=== PATIENT | male | born 1985 | race Caucasian/White ===

== ENCOUNTER 2023-01-18 05:28 | Inpatient (IN) | payer SELFPAY ==
[~2023-01-18] VITALS: Ht 182.9 cm; Wt 112.0 kg
--- NOTE | 2023-01-18 05:44 | ED Abdominal Pain ---
General Chief Complaint: Abdominal/GI Problems Stated Complaint: STOMACH PAIN History of Present Illness Date Seen by Provider: Jan 18, 2023 Time Seen by Provider: 05:42 Initial Comments 37-year-old male with PMH of gastric ulcer/GERD, is here with complaints of upper abdominal pain which began around 3:30 AM today morning. Patient had 2 teeth pulled yesterday. Abdominal pain is 4/10 intensity, and is coming and going. Denies diarrhea, dysuria, hematuria, nausea and vomiting, fever and chills, chest pain or palpitations. Allergies and Home Medications Allergies Coded Allergies: No Known Drug Allergies (Unverified , 01/18/23) Patient Home Medication List Home Medication List Reviewed: Yes Review of Systems Review of Systems Constitutional: no symptoms reported EENTM: No Symptoms Reported Respiratory: No Symptoms Reported Cardiovascular: No Symptoms Reported Gastrointestinal: Abdominal Pain Genitourinary: No Symptoms Reported Musculoskeletal: no symptoms reported Skin: no symptoms reported Psychiatric/Neurological: No Symptoms Reported Endocrine: No Symptoms Reported Hematologic/Lymphatic: No Symptoms Reported Physical Exam Vital Signs Vital Signs - First Documented 01/18/23 05:32 Temp 36.0 Pulse 52 Resp 14 B/P (MAP) 145/95 (112) Pulse Ox 99 O2 Delivery Room Air Capillary Refill : Height/Weight/BMI Height: '" Weight: lbs. oz. kg; BMI Method: General Appearance: WD/WN, mild distress HEENT: PERRL/EOMI Neck: full range of motion Respiratory: chest non-tender, lungs clear, normal breath sounds Cardiovascular: regular rate, rhythm, no edema Gastrointestinal: normal bowel sounds, soft, no organomegaly, tenderness (Tenderness present mainly in the epigastric region) Extremities: normal range of motion Back: normal inspection, no CVA tenderness, no vertebral tenderness Neurologic/Psychiatric: alert, normal mood/affect, oriented x 3 Skin: normal color Progress/Results/Core Measures Results/Orders Lab Results Laboratory Tests Test 01/18/23 05:40 Range/Units White Blood Count 12.6 H 4.3-11.0 10^3/uL Red Blood Count 5.24 4.30-5.52 10^6/uL Hemoglobin 15.7 13.3-17.7 g/dL Hematocrit 44 40-54 % Mean Corpuscular Volume 83 80-99 fL Mean Corpuscular Hemoglobin 30 25-34 pg Mean Corpuscular Hemoglobin Concent 36 32-36 g/dL Red Cell Distribution Width 11.9 10.0-14.5 % Platelet Count 327 130-400 10^3/uL Mean Platelet Volume 9.3 9.0-12.2 fL Immature Granulocyte % (Auto) 0 % Neutrophils (%) (Auto) 74 42-75 % Lymphocytes (%) (Auto) 19 12-44 % Monocytes (%) (Auto) 5 0-12 % Eosinophils (%) (Auto) 2 0-10 % Basophils (%) (Auto) 0 0-10 % Neutrophils # (Auto) 9.3 H 1.8-7.8 10^3/uL Lymphocytes # (Auto) 2.3 1.0-4.0 10^3/uL Monocytes # (Auto) 0.7 0.0-1.0 10^3/uL Eosinophils # (Auto) 0.3 0.0-0.3 10^3/uL Basophils # (Auto) 0.0 0.0-0.1 10^3/uL Immature Granulocyte # (Auto) 0.0 0.0-0.1 10^3/uL Sodium Level 139 135-145 MMOL/L Potassium Level 3.5 L 3.6-5.0 MMOL/L Chloride Level 104 98-107 MMOL/L Carbon Dioxide Level 19 L 21-32 MMOL/L Anion Gap 16 H 5-14 MMOL/L Blood Urea Nitrogen 17 7-18 MG/DL Creatinine 0.90 0.60-1.30 MG/DL Estimat Glomerular Filtration Rate 114 BUN/Creatinine Ratio 19 Glucose Level 132 H 70-105 MG/DL Calcium Level 9.9 8.5-10.1 MG/DL Corrected Calcium 8.5-10.1 MG/DL Total Bilirubin 0.5 0.1-1.0 MG/DL Aspartate Amino Transf (AST/SGOT) 16 5-34 U/L Alanine Aminotransferase (ALT/SGPT) 23 0-55 U/L Alkaline Phosphatase 73 40-136 U/L Total Protein 7.4 6.4-8.2 GM/DL Albumin 4.9 H 3.2-4.5 GM/DL Lipase 806 H 8-78 U/L Serum Alcohol < 10 <10 MG/DL My Orders Orders - AGUSTÍN JAMES MD Alcohol (01/18/23 05:44) Cbc With Automated Diff (01/18/23 05:44) Comprehensive Metabolic Panel (01/18/23 05:44) Drug Screen Stat (Urine) (01/18/23 05:44) Lipase (01/18/23 05:44) Ua Culture If Indicated (01/18/23 05:44) Ct Abdomen/Pelvis W (01/18/23 05:45) Pantoprazole Injection (Protonix Injecti (01/18/23 06:00) Famotidine Injection (Pepcid Injection) (01/18/23 06:00) Ed Iv/Invasive Line Start (01/18/23 05:51) Ns Iv 1000 Ml (Sodium Chloride 0.9%) (01/18/23 05:51) Iohexol Injection (Omnipaque 350 Mg/Ml 1 (01/18/23 06:00) Received Contrast (Hold Metformin- Contr (01/18/23 06:00) Sodium Chloride Flush (Catheter Flush Sy (01/18/23 06:00) Ns (Ivpb) (Sodium Chloride 0.9% Ivpb Bag (01/18/23 06:00) Ondansetron Injection (Zofran Injectio (01/18/23 06:00) Fentanyl Inj (Sublimaze Injection) (01/18/23 06:00) Medications Given in ED Current Medications Medications Dose Ordered Sig/Soledad Route Start Time Stop Time Status Last Admin Dose Admin Famotidine 20 mg ONCE ONCE IVP 01/18/23 06:00 01/18/23 06:01 DC 01/18/23 05:58 20 MG Fentanyl Citrate 50 mcg ONCE ONCE IVP 01/18/23 06:00 01/18/23 06:01 DC 01/18/23 06:07 50 MCG Iohexol 100 ml ONCE ONCE IV 01/18/23 06:00 01/18/23 06:01 DC 01/18/23 06:26 80 ML Ondansetron HCl 4 mg ONCE ONCE IVP 01/18/23 06:00 01/18/23 06:01 DC 01/18/23 06:05 4 MG Pantoprazole 40 mg ONCE ONCE IV 01/18/23 06:00 01/18/23 06:01 DC 01/18/23 05:59 40 MG Sodium Chloride 10 ml NEEDED PRN IV 01/18/23 06:00 01/18/23 06:27 10 ML Sodium Chloride 100 ml ONCE ONCE IV 01/18/23 06:00 01/18/23 06:01 DC 01/18/23 06:26 100 ML Vital Signs/I&O 01/18/23 05:32 Temp 36.0 Pulse 52 Resp 14 B/P (MAP) 145/95 (112) Pulse Ox 99 O2 Delivery Room Air Progress Progress Note : Progress Note 1. ABDOMINAL PAIN: PANCREATITIS - CT ABD: negative for acute processes - CBC:WBC is 12.6 with a left shift - CMP: unremarkable - Lipase: 806 - UA/ UDS: pt did not give urine - Protonix 40mg iv/ Pepcid 20mg iv/ NS IVF - Zofran 4mg iv/ Fentanyl iv - Admission for pancreatitis for pain control and IVF Diagnostic Imaging Diagonstic Imaging: CT Plain Films/CT/US/NM/MRI: abdomen Comments NAME: TAMMI HIGGINS MED REC#: [id number] PT STATUS: REG ER : 1985 PHYSICIAN: AGUSTÍN JAMES MD ADMIT DATE: 01/18/23/ER FS Draft Date of Exam:01/18/23 CT ABDOMEN/PELVIS W PROCEDURE: CT abdomen and pelvis with contrast. TECHNIQUE: Multiple contiguous axial images were obtained through the abdomen and pelvis after administration of intravenous contrast. Auto Exposure Controls were utilized during the CT exam to meet ALARA standards for radiation dose reduction. All CT scans use one or more of the following dose optimizing techniques: automated exposure control, MA and/or KvP adjustment based on patient size and exam type or iterative reconstruction. INDICATION: 38-year-old male, abdominal pain with nausea and vomiting. CORRELATION STUDY: None. FINDINGS: LOWER THORAX: Clear. LIVER: Enlarged at 20.8 cm with mild steatosis. Very mild additional fatty infiltration along the falciform ligament. GALLBLADDER: Present and unremarkable. No bile duct dilatation. SPLEEN: Unremarkable. PANCREAS: Unremarkable. ADRENAL GLANDS: Unremarkable. KIDNEYS: Probable very small cyst inferior pole left kidney with perhaps a very small angiomyolipoma inferior pole right kidney. No calcification or obstruction. ABDOMINAL AORTA: Unremarkable, nonaneurysmal. GASTROINTESTINAL TRACT: Colon is largely decompressed. A few scattered colonic diverticuli without evidence for diverticulitis. Normal appendix. A few fluid-filled loops of small bowel without obstruction. Stomach is decompressed. No abdominal ascites and/or free air. URINARY BLADDER: Unremarkable. REPRODUCTIVE: Unremarkable. OSSEOUS STRUCTURES: No acute abnormality. OTHER: Small fat-containing bilateral inguinal hernias. IMPRESSION: 1. Negative for acute abnormality of the abdomen or pelvis. A few colonic diverticuli without diverticulitis. Decompressed gastrointestinal track. No obstruction. Dictated on workstation # [id number] Dict: 01/18/23 0636 Trans: 01/18/23 0656 DO [id number] Interpreted by: JOSEPH MCCALL DO Electronically signed by: Transfer of Care Time: 07:00 Departure Communication (Admissions) Time/Spoke to Admitting Phy: 07:05 hospitalist for admission Impression Primary Impression: Pancreatitis Qualified Codes: K85.00 - Idiopathic acute pancreatitis without necrosis or infection Disposition: 30 STILL A PATIENT Condition: Stable Admissions Decision to Admit Reason: Admit from ER (General) Decision to Admit/Date: Jan 18, 2023 Time/Decision to Admit Time: 07:00 Transfer Method of Transfer: Private Vehicle Departure-Patient Inst. Referrals: NO,LOCAL PHYSICIAN (PCP) Primary Care Physician AGUSTÍN JAMES MD Jan 18, 2023 05:44
[2023-01-18] MEDS ORDERED: NS IV 1000 ML 1,000 ML IV STA (05:51)
[2023-01-18] MEDS ORDERED: CATHETER FLUSH 10 ML SYR IV PRN (06:00)
[2023-01-18] MEDS ORDERED: NS 100 ML (IVPB) BAG IV ONE (06:00)
[2023-01-18] MEDS ORDERED: fentaNYL INJ 100 MCG/2 ML AMP IVP ONE (06:00)
[2023-01-18] MEDS ORDERED: HOLD METFORMIN - RECEIVED CONTRAST 20 ML VIAL IV SCH (06:00)
[2023-01-18] MEDS ORDERED: IOHEXOL 350 MG/ML 100 ML (OMNIPAQUE 350) VIAL IV ONE (06:00)
[2023-01-18] MEDS ORDERED: FAMOTIDINE 20MG/2ML IV (PEPCID) IVP ONE (06:00)
[2023-01-18] MEDS ORDERED: PANTOPRAZOLE 40 MG (PROTONIX) VIAL IV ONE (06:00)
[2023-01-18] MEDS ORDERED: ONDANSETRON 4 MG/2 ML (SDV) Z0FRAN IVP ONE (06:00)
[2023-01-18 06:02] LABS: BASOPHILS % (AUTO) 0 % (0-10); EOSINOPHILS # (AUTO) 0.3 10^3/uL (0.0-0.3); EOSINOPHILS % (AUTO) 2 % (0-10); HEMATOCRIT 44 % (40-54); HEMOGLOBIN 15.7 g/dL (13.3-17.7); LYMPHOCYTES # (AUTO) 2.3 10^3/uL (1.0-4.0); LYMPHOCYTES % (AUTO) 19 % (12-44); MEAN CORPUSCULAR HEMOGLOBIN 30 pg (25-34); MEAN CORPUSCULAR HGB CONC 36 g/dL (32-36); MEAN CORPUSCULAR VOLUME 83 fL (80-99); MEAN PLATELET VOLUME 9.3 fL (9.0-12.2); MONOCYTES # (AUTO) 0.7 10^3/uL (0.0-1.0); MONOCYTES % (AUTO) 5 % (0-12); NEUTROPHILS # (AUTO) 9.3 10^3/uL (1.8-7.8); NEUTROPHILS % (AUTO) 74 % (42-75); PLATELET COUNT 327 10^3/uL (130-400); WHITE BLOOD COUNT 12.6 10^3/uL (4.3-11.0)
[2023-01-18 06:38] LABS: ALANINE AMINOTRANSFERASE 23 U/L (0-55); ALBUMIN 4.9 GM/DL (3.2-4.5); ALKALINE PHOSPHATASE 73 U/L (40-136); BILIRUBIN,TOTAL 0.5 MG/DL (0.1-1.0); BUN/CREATININE RATIO 19; CALCIUM 9.9 MG/DL (8.5-10.1); CARBON DIOXIDE 19 MMOL/L (21-32); CHLORIDE 104 MMOL/L (98-107); GFR ESTIMATED 114; GLUCOSE 132 MG/DL (70-105); POTASSIUM 3.5 MMOL/L (3.6-5.0); SODIUM 139 MMOL/L (135-145); TOTAL PROTEIN 7.4 GM/DL (6.4-8.2)
[2023-01-18 06:53] LABS: LIPASE 806 U/L (8-78)
--- NOTE | 2023-01-18 06:56 | Diagnostic Imaging Report ---
PROCEDURE: CT abdomen and pelvis with contrast. TECHNIQUE: Multiple contiguous axial images were obtained through the abdomen and pelvis after administration of intravenous contrast. Auto Exposure Controls were utilized during the CT exam to meet ALARA standards for radiation dose reduction. All CT scans use one or more of the following dose optimizing techniques: automated exposure control, MA and/or KvP adjustment based on patient size and exam type or iterative reconstruction. INDICATION: 38-year-old male, abdominal pain with nausea and vomiting. CORRELATION STUDY: None. FINDINGS: LOWER THORAX: Clear. LIVER: Enlarged at 20.8 cm with mild steatosis. Very mild additional fatty infiltration along the falciform ligament. GALLBLADDER: Present and unremarkable. No bile duct dilatation. SPLEEN: Unremarkable. PANCREAS: Unremarkable. ADRENAL GLANDS: Unremarkable. KIDNEYS: Probable very small cyst inferior pole left kidney with perhaps a very small angiomyolipoma inferior pole right kidney. No calcification or obstruction. ABDOMINAL AORTA: Unremarkable, nonaneurysmal. GASTROINTESTINAL TRACT: Colon is largely decompressed. A few scattered colonic diverticuli without evidence for diverticulitis. Normal appendix. A few fluid-filled loops of small bowel without obstruction. Stomach is decompressed. No abdominal ascites and/or free air. URINARY BLADDER: Unremarkable. REPRODUCTIVE: Unremarkable. OSSEOUS STRUCTURES: No acute abnormality. OTHER: Small fat-containing bilateral inguinal hernias. IMPRESSION: 1. Negative for acute abnormality of the abdomen or pelvis. A few colonic diverticuli without diverticulitis. Decompressed gastrointestinal track. No obstruction. Dictated by: Dictated on workstation # [id number]
[2023-01-18] MEDS ORDERED: fentaNYL INJ 100 MCG/2 ML AMP ONE (08:05)
[2023-01-18] MEDS ORDERED: fentaNYL INJ 100 MCG/2 ML AMP IM PRN ×2 (08:15)
[2023-01-18] MEDS ORDERED: diphenhydrAMINE 50 MG/ML INJ (BENADRYL) IVP PRN (09:15)
[2023-01-18] MEDS ORDERED: polyethylene glycoL POWDER 17 GM (MIRALAX) PACK PO PRN (09:15)
[2023-01-18] MEDS ORDERED: NS IV 500 ML 500 ML IV PRN (09:15)
[2023-01-18] MEDS ORDERED: ONDANSETRON 4 MG (ZOFRAN) ORAL DISSOLVE TAB PO PRN (09:15)
[2023-01-18] MEDS ORDERED: ONDANSETRON 4 MG/2 ML (SDV) Z0FRAN IV PRN (09:15)
[2023-01-18] MEDS ORDERED: morphine INJ 10 MG/ML 1ML (SYR OR VIAL) IVP PRN (09:15)
[2023-01-18] MEDS ORDERED: ACETAMINOPHEN 325 MG TABLET PO PRN (09:15)
[2023-01-18] MEDS ORDERED: MELATONIN 3 MG TABLET PO PRN (09:15)
[2023-01-18] MEDS ORDERED: BISACODYL 10 MG SUPP (DULCOLAX) PR PRN (09:15)
[2023-01-18] MEDS ORDERED: ANTACID SUSP 30 ML UDC (MYLANTA) PO PRN (09:15)
[2023-01-18] MEDS ORDERED: diphenhydrAMINE 25 MG TAB (BENADRYL) PO PRN (09:15)
[2023-01-18 09:21] VITALS: BP 172/109
[2023-01-18] MEDS: LACTATED RINGERS 1,000 ML IV SCH ×2 (09:43→18:04)
[2023-01-18] MEDS: ENOXAPARIN 40 MG/0.4 ML (LOVENOX) SYR SC SCH (09:44)
[2023-01-18 11:18] VITALS: BP 150/88
--- NOTE | 2023-01-18 12:23 | History & Physical-Hospitalist ---
History of Present Illness HPI/Chief Complaint Jose Beard is a 38 year old male who presented with abdominal pain. The pain is located in the epigastric region. He was also having nausea and vomiting. He denies diarrhea. He denies chest pain. He denies shortness of breath. He does not drink alcohol. He does not follow with a doctor. He has no history of pancreatitis. He denies family history of pancreatitis. He does not smoke or vape. He does smoke marijuana daily. Source: patient Exam Limitations: no limitations Date Seen 01/18/23 Time Seen by a Provider: 11:15 Attending Physician No,Local Physician PCP Admitting Physician: Emilie Kaplan MD Attending Physician: Emilie Kaplan MD Referring Physician Date of Admission Jan 18, 2023 at 09:11 Home Medications & Allergies Home Medications Reviewed patient Home Medication Reconciliation performed by pharmacy medication reconciliations mobile service rv technician and/or nursing. Patients Allergies have been reviewed. Allergies Allergies Coded Allergies No Known Drug Allergies (Unverified01/18/23) Past Argziir-Znorxx-Pjykru Hx Patient Social History Tobacco Use?: No Use of E-Cig and/or Vaping dev: No Substance use?: Yes Substance type: Marijuana Alcohol Use?: No Immunizations Up To Date First/Initial COVID19 Vaccinat: NO Second COVID19 Vaccination Darius: NO Current Status Primary Language: Canadian Preferred Spoken Language: Canadian Family Medical History No Pertinent Family Hx Review of Systems Constitutional: no symptoms reported EENTM: no symptoms reported Respiratory: no symptoms reported Cardiovascular: no symptoms reported Gastrointestinal: abdominal pain, nausea, vomiting Physical Exam Physical Exam Vital Signs Vital Signs - First Documented 01/18/23 05:32 Temp 36.0 Pulse 52 Resp 14 B/P (MAP) 145/95 (112) Pulse Ox 99 O2 Delivery Room Air Capillary Refill : Less Than 3 Seconds Height, Weight, BMI Height: '" Weight: lbs. oz. kg; 33.48 BMI Method: General Appearance: No Apparent Distress, Obese HEENT: PERRL/EOMI, Pharynx Normal Neck: Normal Inspection, Supple Respiratory: Lungs Clear, Normal Breath Sounds, No Respiratory Distress Cardiovascular: Regular Rate, Rhythm, No Edema, No Murmur Gastrointestinal: Normal Bowel Sounds, Soft, Tenderness (minimal epigastric) Extremity: Normal Inspection, Non Tender, No Pedal Edema Neurologic/Psychiatric: Alert, Oriented x3, Normal Mood/Affect Skin: Normal Color, Warm/Dry Results Results/Procedures Labs Laboratory Tests 01/18/23 05:40 01/19/23 05:38 Patient resulted labs reviewed. Imaging: Reviewed Imaging Report Assessment/Plan Admission Diagnosis Acute pancreatitis Admission Status: Inpatient Order (span 2 midnights) Reason for Inpatient Admission: IV fluids Pain medications Assessment and Plan Acute pancreatitis Unclear etiology CT unmarkable, no evidence of stones or biliary ductal dilatation No history of alcohol use Add on lipid panel IV fluids Morphine Antiemetics Trial clear liquids GERD Obesity Diagnosis/Problems Diagnosis/Problems (1) Acute pancreatitis Status: Acute Qualifiers: Pancreatitis type: idiopathic Acute pancreatitis complication: no infection or necrosis Qualified Codes: K85.00 - Idiopathic acute pancreatitis without necrosis or infection (2) Hypokalemia Status: Acute (3) GERD (gastroesophageal reflux disease) Status: Chronic (4) Obesity Status: Chronic EMILIE KAPLAN MD Jan 18, 2023 12:23
[2023-01-18 13:49] LABS: TRIGLYCERIDES 85 MG/DL (<150); VLDL CHOLESTEROL 17 MG/DL (5-40)
[2023-01-18 13:53] LABS: CHOLESTEROL 173 MG/DL (< 200)
[2023-01-18 13:54] LABS: HDL CHOLESTEROL 37 MG/DL (40-60)
[2023-01-18 16:30] VITALS: BP 162/92
[2023-01-18] MEDS ORDERED: amLODIPine 10 MG (NORVASC) TAB PO ONE (16:45)
[2023-01-18] MEDS: DOCUSATE SODIUM 100 MG (COLACE) CAP PO SCH (19:36)
[2023-01-18 19:40] VITALS: BP 146/87
[2023-01-18 23:14] VITALS: BP 143/92
[2023-01-19] MEDS: LACTATED RINGERS 1,000 ML IV SCH ×2 (02:01→09:40)
[2023-01-19 03:21] VITALS: BP 134/62
[2023-01-19] MEDS ORDERED: POTASSIUM CL 10MEQ/50ML IVPB 50 ML IV SCH (06:00)
[2023-01-19] MEDS ORDERED: KCL 20 MEQ TAB (K-DUR) PO SCH (06:00)
[2023-01-19] MEDS ORDERED: MAGNESIUM 1 GM/100 ML IVPB 100 ML IV SCH (06:00)
[2023-01-19 06:06] LABS: BASOPHILS % (AUTO) 0 % (0-10); EOSINOPHILS # (AUTO) 0.2 10^3/uL (0.0-0.3); EOSINOPHILS % (AUTO) 2 % (0-10); HEMATOCRIT 42 % (40-54); HEMOGLOBIN 14.9 g/dL (13.3-17.7); LYMPHOCYTES # (AUTO) 2.3 10^3/uL (1.0-4.0); LYMPHOCYTES % (AUTO) 26 % (12-44); MEAN CORPUSCULAR HEMOGLOBIN 30 pg (25-34); MEAN CORPUSCULAR HGB CONC 35 g/dL (32-36); MEAN CORPUSCULAR VOLUME 85 fL (80-99); MEAN PLATELET VOLUME 9.6 fL (9.0-12.2); MONOCYTES # (AUTO) 0.5 10^3/uL (0.0-1.0); MONOCYTES % (AUTO) 6 % (0-12); NEUTROPHILS # (AUTO) 5.8 10^3/uL (1.8-7.8); NEUTROPHILS % (AUTO) 66 % (42-75); PLATELET COUNT 255 10^3/uL (130-400); WHITE BLOOD COUNT 8.8 10^3/uL (4.3-11.0)
[2023-01-19 06:31] LABS: ALBUMIN 4.3 GM/DL (3.2-4.5); BILIRUBIN,TOTAL 0.5 MG/DL (0.1-1.0); CALCIUM 9.3 MG/DL (8.5-10.1); CREATININE SERUM 0.86 MG/DL (0.60-1.30); MAGNESIUM 1.8 MG/DL (1.6-2.4); TOTAL PROTEIN 6.7 GM/DL (6.4-8.2)
[2023-01-19] MEDS: MAGNESIUM 1 GM/100 ML IVPB 100 ML IV SCH ×2 (07:07→08:04)
[2023-01-19 07:30] VITALS: BP 137/94
[2023-01-19] MEDS: ENOXAPARIN 40 MG/0.4 ML (LOVENOX) SYR SC SCH (08:04)
[2023-01-19] MEDS: DOCUSATE SODIUM 100 MG (COLACE) CAP PO SCH (08:04)
[2023-01-19 11:21] VITALS: BP 133/89
[2023-01-19 11:59] VITALS: BP 133/89
--- NOTE | 2023-01-19 20:09 | Discharge Summary ---
Discharge Summary Hospital Course Problems/Dx: (1) Acute pancreatitis Status: Acute Qualifiers: Qualified Codes: K85.00 - Idiopathic acute pancreatitis without necrosis or infection (2) Hypokalemia Status: Acute (3) GERD (gastroesophageal reflux disease) Status: Chronic (4) Obesity Status: Chronic Hospital Course Date of Admission: Jan 18, 2023 at 09:11 Admission Diagnosis : Acute pancreatitis Family Physician/Provider: EveLocal Physician Date of Discharge: 01/19/23 Discharge Diagnosis: Acute pancreatitis Hospital Course: Jose Beard is a 38 year old male who was admitted with acute pancreatitis. He had epigastric pain and an elevated lipase. A CT scan did not reveal any acute abnormalities and no gallstones. He does not drink alcohol. His triglycerides were within normal limits. He was treated with IV fluids. He required minimal pain medication. His diet was advanced and he tolerated it well. He had elevated BP and blood sugars during his stay. He was encouraged to establish with a PCP at [facility] in [place]. He was discharged home in stable condition. Labs and Pending Lab Test: Laboratory Tests 01/19/23 05:38: White Blood Count 8.8, Red Blood Count 4.98, Hemoglobin 14.9, Hematocrit 42, Mean Corpuscular Volume 85, Mean Corpuscular Hemoglobin 30, Mean Corpuscular Hemoglobin Concent 35, Red Cell Distribution Width 12.1, Platelet Count 255, Mean Platelet Volume 9.6, Immature Granulocyte % (Auto) 0, Neutrophils (%) (Auto) 66, Lymphocytes (%) (Auto) 26, Monocytes (%) (Auto) 6, Eosinophils (%) (Auto) 2, Basophils (%) (Auto) 0, Neutrophils # (Auto) 5.8, Lymphocytes # (Auto) 2.3, Monocytes # (Auto) 0.5, Eosinophils # (Auto) 0.2, Basophils # (Auto) 0.0, Immature Granulocyte # (Auto) 0.0, Sodium Level 141, Potassium Level 4.0, Chloride Level 111H, Carbon Dioxide Level 20L, Anion Gap 10, Blood Urea Nitrogen 7, Creatinine 0.86, Estimat Glomerular Filtration Rate 115, BUN/Creatinine Ratio 8, Glucose Level 107H, Calcium Level 9.3, Corrected Calcium 9.1, Magnesium Level 1.8, Total Bilirubin 0.5, Aspartate Amino Transf (AST/SGOT) 15, Alanine Aminotransferase (ALT/SGPT) 22, Alkaline Phosphatase 54, Total Protein 6.7, Albumin 4.3 Home Meds Active No Active Prescriptions or Reported Medications Assessment/Pt Instructions See instructions Discharge Planning: <30 minutes discharge planning Discharge Instructions Discharge Diet: No Restrictions Activity as Tolerated: Yes Discharge Physical Examination Vital Signs Vital Signs Date Time Temp Pulse Resp B/P (MAP) Pulse Ox O2 Delivery O2 Flow Rate FiO2 01/19/23 11:59 36.4 60 18 133/89 97 Room Air General Appearance: No Apparent Distress, Obese Respiratory: Lungs Clear, No Respiratory Distress Cardiovascular: Regular Rate, Rhythm, No Murmur Gastrointestinal: Normal Bowel Sounds, Soft Extremity: Normal Inspection, No Pedal Edema Skin: Normal Color, Warm/Dry Neurologic/Psychiatric: Alert, Normal Mood/Affect Allergies: Coded Allergies: No Known Drug Allergies (Unverified , 01/18/23) Copy Copies To 1: [facility] [place] Discharge Summary Date of Admission Jan 18, 2023 at 09:11 Date of Discharge Jan 19, 2023 at 12:24 Discharge Date: Jan 19, 2023 Discharge Time: 12:24 Admission Diagnosis Acute pancreatitis Discharge Diagnosis Acute pancreatitis Unclear etiology CT unmarkable, no evidence of stones or biliary ductal dilatation No history of alcohol use Add on lipid panel IV fluids Morphine Antiemetics Trial clear liquids GERD Obesity (1) Acute pancreatitis Status: Acute Qualifiers: Qualified Codes: K85.00 - Idiopathic acute pancreatitis without necrosis or infection (2) Hypokalemia Status: Acute (3) GERD (gastroesophageal reflux disease) Status: Chronic (4) Obesity Status: Chronic DAVID KAPLAN MD Jan 19, 2023 20:09
== END 2023-01-19 12:24 | disposition home or self-care (01) | DRG 440 ==
LOC: ER FS 05:34 → EDBD 05:34 → 4TH 09:11
PROVIDERS: ADMIT Internal Medicine; ATTEND Internal Medicine
DX: K85.90 Acute pancreatitis without necrosis or infection, unspecified (principal); K21.9 Gastro-esophageal reflux disease without esophagitis; E87.6 Hypokalemia; F12.90 Cannabis use, unspecified, uncomplicated; E66.9 Obesity, unspecified; Z68.33 Body mass index [BMI] 33.0-33.9, adult; Z87.11 Personal history of peptic ulcer disease; Z28.310 Unvaccinated for COVID-19; Z28.9 Immunization not carried out for unspecified reason
CPT/HCPCS: 36415; 74177; 80053; 80061; 80320; 83690; 83735; 85025